=== PATIENT | male | born 1985 | race Caucasian/White ===

== ENCOUNTER 2017-02-11 11:29 | Emergency (ER) | payer BC, OTHER ==
[~2017-02-11] VITALS: Ht 185.4 cm; Wt 95.3 kg
--- NOTE | ~2017-02-11 | EKG ---
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: [facility] : 1985 Requested By: Ish Mansfield Order Number: [id number] MD: Dre Davison Measurements Intervals [place] Rate: 108 P: 61 MN: 148 QRS: 60 QRSD: 102 T: -16 QT: 307 QTc: 412 Interpretive Statements Sinus tachycardia Probable left atrial enlargement Borderline T abnormalities, inferior leads No previous ECG available for comparison Electronically Signed On 02-11-2017 15:33:47 CDT by Dre Davison [email or web address] <ELECTRONICALLY SIGNED> By: Dre Davison MD 02/11/17 1533 [id number] [id number] MD SONY Leon
[~2017-02-11 11:29] MED LIST: EPIPEN0.3 MG/0.3 IM; MEDROLDOSEPACK PO
[2017-02-11] MEDS ORDERED: ALLEGRA ALLERGY60 MG PO (11:35)
[2017-02-11] MEDS ORDERED: KEPPRA 500 MG500 M1 PO (11:36)
[2017-02-11 11:52] LABS: ABSOLUTE NEUTROPHILS 5.6 thou/uL (1.4-8.2); BASOPHILS 0.7 % (0.0-2.0); EOSINOPHILS 0.6 % (0.0-3.0); HEMATOCRIT 49.4 % (42.0-52.0); LYMPHOCYTES 42.3 % (24.0-44.0); MANUAL DIFF NO; MCH 29.1 pg (26.0-34.0); MCHC 34.3 g/dL (28.0-37.0); MCV 84.9 fL (80.0-100.0); MONOCYTES 8.8 % (1.0-8.0); POLYS 47.6 % (36.0-66.0); RBC 5.82 mil/uL (4.50-6.00); RDW 12.7 % (10.5-14.5); WBC 12.8 thou/uL (4.0-11.0)
[2017-02-11 12:05] LABS: CALCIUM 9.8 mg/dL (8.5-10.1); CREATININE 1.4 mg/dL (0.7-1.3); POTASSIUM 4.3 mmol/L (3.5-5.1)
[2017-02-11 13:31] VITALS: BP 126/84
[2017-02-11 13:33] LABS: PLATELET COUNT 249 thou/uL (150-400)
== END 2017-02-11 13:39 | disposition home or self-care (01) ==
LOC: ER 11:29
PROVIDERS: Physician Assistant
DX: R56.9 Unspecified convulsions (principal); E86.0 Dehydration; Z91.010 Allergy to peanuts